=== PATIENT | male | born 1950 | race Caucasian/White ===

== ENCOUNTER 2017-04-07 11:14 | Emergency (ER) | payer OTHER ==
--- NOTE | 2017-04-07 11:32 | PDOC ---
[id number] LEFT SIDE RIB PAIN Time Seen by Provider: 04/07/17 11:31 History Source: Patient Exam Limitations: No Limitations - History of Present Illness Initial Comments: 66 yo M history hyperlipidemia presents with L anterior rib pain. He states that he was playing tennis, ran into the net pole. This occurred two days ago, and since then, he has moderate to severe pain. Better with rest, worse with twisting of torso, laughing, deep breaths. No other injuries. He has not taken anything for pain. It has been very difficult to sleep. Denies SOB. Past History - Past Medical History Allergies/Adverse Reactions: Allergies Allergy/AdvReac Type Severity Reaction Status Date / Time No Known Allergies Allergy Verified 04/07/17 11:15 Home Medications: Ambulatory Orders Atorvastatin Ca [Lipitor] 20 mg PO DAILY 04/07/17 Ibuprofen [Motrin -] 600 mg PO TID PRN #21 tablet 04/07/17 Tramadol HCl 0.5 tab PO Q6H PRN #12 tablet MDD 4 tabs 04/07/17 Hypercholesterolemia: Yes - Surgical History GI Surgery: Yes (HERNIA) - Psycho/Social/Smoking Cessation Hx Anxiety: No Suicidal Ideation: No Smoking History: Never smoked Have you smoked in the past 12 months: No Information on smoking cessation initiated: No Hx Alcohol Use: No Drug/Substance Use Hx: No Substance Use Type: None Review of Systems - Review of Systems Able to Perform ROS?: Yes Comments:: GENERAL/CONSTITUTIONAL: No fever or chills. No weakness. HEAD, EYES, EARS, NOSE AND THROAT: No change in vision. No ear pain or discharge. No sore throat. CARDIOVASCULAR: +L anterior rib pain. No shortness of breath. RESPIRATORY: No cough, wheezing, or hemoptysis. GASTROINTESTINAL: No nausea, vomiting, diarrhea or constipation. GENITOURINARY: No dysuria, frequency, or change in urination. MUSCULOSKELETAL: No joint or muscle swelling or pain. No neck or back pain. SKIN: No rash NEUROLOGIC: No headache, vertigo, loss of consciousness, or change in strength/ sensation. ENDOCRINE: No increased thirst. No abnormal weight change. HEMATOLOGIC/LYMPHATIC: No anemia, easy bleeding, or history of blood clots. ALLERGIC/IMMUNOLOGIC: No hives or skin allergy. *Physical Exam - Vital Signs Last Vital Signs Temp Pulse Resp BP Pulse Ox 98.4 F 64 20 114/73 97 04/07/17 11:15 04/07/17 11:15 04/07/17 11:15 04/07/17 11:15 04/07/17 11:15 - Physical Exam Comments: GENERAL: Awake, alert, and fully oriented, in no acute distress HEAD: No signs of trauma EYES: PERRLA, EOMI, sclera anicteric, conjunctiva clear ENT: Auricles normal inspection, hearing grossly normal, nares patent, oropharynx clear without exudates. Moist mucosa NECK: Normal ROM, supple, no lymphadenopathy, JVD, or masses LUNGS: +Tenderness to L anterior ribs at the lower rib margin at the between the mid-axillary line and mid-clavicular line. Breath sounds equal, clear to auscultation bilaterally. No wheezes, and no crackles. Patient splints upon attempting a deep breath. HEART: Regular rate and rhythm, normal S1 and S2, no murmurs, rubs or gallops ABDOMEN: Soft, nontender, normoactive bowel sounds. No guarding, no rebound. No masses EXTREMITIES: Normal range of motion, no edema. No clubbing or cyanosis. No cords, erythema, or tenderness NEUROLOGICAL: Cranial nerves II through XII grossly intact. Normal speech, normal gait SKIN: Warm, Dry, normal turgor, no rashes or lesions noted. Medical Decision Making - Medical Decision Making XR reviewed with patient. I suspect there may be a small fracture, however, any further imaging will not change the management. Will not obtain CT. Will treat with pain meds. Counseled patient that treating the pain is important to prevent pna. Stable for DC home. *DC/Admit/Observation/Transfer Diagnosis at time of Disposition: Bruised ribs Qualifiers: Encounter type: initial encounter Laterality: left Qualified Code(s): S20.212A - Contusion of left front wall of thorax, initial encounter - Discharge Dispostion Disposition: HOME Condition at time of disposition: Stable Admit: No - Prescriptions Prescriptions: Ibuprofen [Motrin -] 600 mg PO TID PRN #21 tablet PRN Reason: Pain Tramadol HCl 0.5 tab PO Q6H PRN #12 tablet MDD 4 tabs PRN Reason: breakthrough pain - Patient Instructions Printed Discharge Instructions: DI for Rib Contusion Additional Instructions: Motrin 600 mg every 8 hours as needed for pain. Use tramadol only for breakthrough pain (i.e. if you can't take a deep breath). It is important that you are able to take a deep breath to prevent pneumonia.
[2017-04-07 11:33] VITALS: BP 114/73; PULSE 64; TEMP 98.4; BMI 23.1
[2017-04-07] MEDS ORDERED: IBUPROFEN 600 MG TABLET (FP) PO ONE ×2 (11:47→12:02)
== END 2017-04-07 12:59 | disposition home or self-care (01) ==
LOC: FER 11:14
DX: S20.212A Contusion of left front wall of thorax, initial encounter (principal); E78.5 Hyperlipidemia, unspecified; W21.89XA Striking against or struck by other sports equipment, initial encounter; Y93.73 Activity, racquet and hand sports; Y92.312 Tennis court as the place of occurrence of the external cause
CPT/HCPCS: 71101-TC; 99282-25